=== PATIENT | female | born 1995 | race Caucasian/White ===

== ENCOUNTER 2016-05-19 13:18 | Emergency (ER) | payer SELFPAY ==
[2016-05-19 13:26] VITALS: BP 130/71; BMI 23.5
--- NOTE | 2016-05-19 15:03 | DR.GENAD ---
HPI - PCP Primary Care Physician: NFD - HPI Comment HPI Comment: GETTING WORSE. NO DRAINAGE. HAVE LOW GRADE FEVER.EAR CANAL PAINFULL ALSO. SIDE OF FACE NEAR EARS SORE. - Complaint/Symptoms Chief Complaint Doctors Comments: PAIN BOTH EARS TIMES 3 DAYS. Chief Complaint:: BOTH EARS AND SIDES OF FACE SORE TO AND HURTS TO TOUCH - Nurses notes reviewed Nurses Notes Review: Yes - Source History Provided: Patient - Mode of Arrival Mode of Arrival: Ambulatory - Timing Onset of Chief Complaint: 05/16/16 Came on: Suddenly - Duration Duration: Constant Duration: Days - Severity Severity: Moderate PMH - PMH Past Medical History: No Past Surgical History: Yes Surgical History: Tonsillectomy - Family History History of Family Medical Conditions: Yes Family Medical History: [place], Hypertension - Social History Alcohol Use: None Do you use any recreational Drugs:: No Lives With: Alone Lives Where: Home - infectious screening In the last 2 months have you had wt loss of >10#?: NO Have you had fever, night sweats or hemotysis?: No Have you traveled outside the country in the last 6 months?: No Isolation: Standard ROS - Review of Systems Constitutional: Fever Eyes: No Symptoms Reported ENTM: Ear Pain. negative: Ear Discharge, Hearing Loss, Nose Discharge, Nose Congestion, Throat Pain Respiratoy: No Symptoms Reported Cardiovascular: No Symptoms Reported Gastrointestinal/Abdominal: No Symptoms Reported Genitourinary: No Symptoms Reported Neurological: No Symptoms Reported Musculoskeletal: No Symptoms Reported Integumentary: No Symptoms Reported Hematologic/Lymphatic: No Symptoms Reported Endocrine: No Symptoms Reported All Other Systems: Reviewed and Negative PE - Vital Signs Vitals: Temperature 99.0 F Pulse Rate 108 Respiratory Rate 14 Blood Pressure 130/71 O2 Sat by Pulse Oximetry 99 - General Limitations: No Limitations General Appearance: Alert - Head Head Exam: Normal Inspection - Eyes Eye exam: Normal Appearance - ENT ENT Exam: negative: Normal External Ear Exam (BOTH EAR CANNAL RED.), TM's Normal Bilaterally (BILATERA HYPEREMIC TM.) External Ear Exam: External Tenderness TM/Canal Exam: Bilateral Erythema Nose Exam: Normal Nose Exam Mouth Exam: Normal Inspection Throat Exam: Normal Inspection - Neck Neck Exam: Trachea Midline. negative: Tenderness, Meningismus, Lymphadenopathy - Chest Chest Inspection: Symmetric Chest Wall Rise - Respiratory Respiratory Exam: Normal Lung Sounds Bilat Respiratory Exam: Bilateral Clear to Auscultation - Cardiovascular Cardiovascular Exam: Regular Rate, Normal Rhythm, Normal Heart Sounds - Abdominal Exam Abdominal Exam: Normal Inspection - Extremities Extremities Exam: Normal Inspection - Back Back Exam: Normal Inspection - Neurologic Neurological Exam: Alert, Oriented X3 - Psychiatric Psychiatric Exam: Normal Affect, Normal Mood - Skin Skin Exam: Normal Color MDM - Differential Diagnosis Differential Diagnosis: BILATERAL OTITIS MEDIA AND BILATERAL OTITIS EXTERNAL. Course - Education/Counseling Education/Counseling: Patient, Education Educated On: Diagnosis, Needs for Follow Up - Diagnosis Discharge Problem: Otitis media Qualifiers: Otitis media type: suppurative Laterality: bilateral Chronicity: acute Recurrence: not specified as recurrent Spontaneous tympanic membrane rupture: without spontaneous rupture Qualified Code(s): H66.003 - Acute suppurative otitis media without spontaneous rupture of ear drum, bilateral Otitis externa Qualifiers: Otitis externa type: unspecified type Laterality: bilateral Chronicity: acute Qualified Code(s): H60.503 - Unspecified acute noninfective otitis externa, bilateral - Discharge Plan Disposition: 01 HOME, SELF-CARE Condition: Stable Prescriptions: Amoxicillin [Amoxil 875 mg] 875 mg PO BID #20 tab Ibuprofen [MOTRIN TAB 600 MG *] 600 mg PO TID PRN #20 tab PRN Reason: Pain/Inflammation - Follow ups/Referrals Follow ups/Referrals: NFD,None [Primary Care Provider] - 3 days - Instructions Instructions: Otitis Media, Adult, [id number] Additional Instructions: RETURN TO ED IF WORSE.
== END 2016-05-19 15:15 | disposition home or self-care (01) ==
LOC: ER 13:18
DX: H66.003 Acute suppurative otitis media without spontaneous rupture of ear drum, bilateral (principal); H60.503 Unspecified acute noninfective otitis externa, bilateral
CPT/HCPCS: 99281; 99282

== ENCOUNTER 2016-11-12 21:16 | Emergency (ER) | payer OTHER ==
[2016-11-12 21:22] VITALS: BP 141/72; BMI 25.8
[2016-11-12 23:11] LABS: BILIRUBIN,URINE NEGATIVE (NEGATIVE); BLOOD/HEMOGLOBIN,URINE NEGATIVE (NEGATIVE); GLUCOSE, URINE NEGATIVE (NEGATIVE); KETONES,URINE NEGATIVE (NEGATIVE); LEUKOCYTE ESTERASE ,URINE 1+ (NEGATIVE); NITRITES,URINE NEGATIVE (NEGATIVE); PROTEIN,URINE NEGATIVE (NEGATIVE); UROBILINOGEN,URINE NORMAL (NORMAL)
[2016-11-12 23:19] LABS: APPEARANCE,URINE CLEAR (CLEAR); BACTERIA,URINE NEGATIVE /HPF (NEGATIVE); COLOR,URINE YELLOW (YELLOW); RBC,URINE 0-3 /HPF (NEGATIVE); SQUAMOUS EPITHELIAL CELL,UR FEW /HPF (NEGATIVE)
== END 2016-11-12 23:45 | disposition home or self-care (01) ==
LOC: ER 21:37
DX: R10.84 Generalized abdominal pain (principal); Z3A.26 26 weeks gestation of pregnancy
CPT/HCPCS: 81001; 99284

== ENCOUNTER 2017-04-12 08:56 | Emergency (ER) | payer OTHER ==
[2017-04-12 08:59] VITALS: BMI 24.3
--- NOTE | 2017-04-12 09:31 | DR.URINEF ---
HPI - Time Seen Time seen: 09:10 - PCP Primary Care Physician: NFD - Complaint Chief Complaint Doctors Comments: Patient states that she has urinary frequency and dysuria for three days. She admits to a UTI just three weeks and was treated with antibiotics by her OB physician.. She now has frequency and dysuria. Denies vomiting or fever. Chief Complaint:: PT. C/O DYSURIA AND URINARY FREQUENCY. PT. HAS BEEN TAKING AZO OTC. - Source History Provided: Patient - Mode of Arrival Mode of Arrival: Ambulatory - Timing Onset of Chief Complaint: 04/10/17 PMH - PMH Past Medical History: No Past Surgical History: Yes Surgical History: Tonsillectomy - Family History History of Family Medical Conditions: Yes Family Medical History: Cancer, Hypertension - Social History Does patient currently use any type of tobacco product: No Have you used tobacco products in the last 12 months: No Type of Tobacco Use: None Does any household member use tobacco: No Alcohol Use: None Do you use any recreational Drugs:: No Lives With: Alone Lives Where: Home - infectious screening In the last 2 months have you had wt loss of >10#?: NO Have you had fever, night sweats or hemotysis?: No Have you traveled outside the country in the last 6 months?: No Isolation: Standard ROS - Review of Systems Eyes: No Symptoms Reported ENTM: No Symptoms Reported Respiratoy: No Symptoms Reported Cardiovascular: No Symptoms Reported Gastrointestinal/Abdominal: No Symptoms Reported Genitourinary: Dysuria, Frequency Neurological: No Symptoms Reported Musculoskeletal: No Symptoms Reported Integumentary: No Symptoms Reported Hematologic/Lymphatic: No Symptoms Reported Endocrine: No Symptoms Reported Psychiatric: No Symptoms Reported All Other Systems: Reviewed and Negative PE - Vital Signs Vitals: Temperature 98.8 F Pulse Rate 94 Respiratory Rate 17 Blood Pressure 135/75 O2 Sat by Pulse Oximetry 99 - General Limitations: No Limitations General Appearance: Alert - Head Head Exam: Normal Inspection, Atraumatic - Eyes Eye exam: Normal Appearance, PERRL, Scleral Icterus - ENT ENT Exam: Normal Exam - Neck Neck Exam: Normal Inspection, Full ROM - Chest Chest Inspection: Normal Inspection - Respiratory Respiratory Exam: Normal Lung Sounds Bilat Respiratory Exam: Bilateral Clear to Auscultation - Cardiovascular Cardiovascular Exam: Regular Rate, Normal Rhythm - Abdominal Exam Abdominal Exam: Normal Inspection, Normal Bowel Sounds Abdominal Tenderness: Suprapubic - Rectal Rectal Exam: Deferred - Genitourinary External Exam: Female: Deferred : Speculum Exam (Female): Deferred : Bimanual Exam (female): Deferred - Extremities Extremities Exam: Normal Inspection - Back Back Exam: Normal Inspection. negative: Tenderness - Neurologic Neurological Exam: Alert, Oriented X3, CN II-XII Intact - Psychiatric Psychiatric Exam: Normal Affect - Skin Skin Exam: Warm, Dry, Intact ROR - Labs Reviewed Laboratory Results Reviewed?: Yes (UA: 15-20 wbc) Laboratory: Specimen Type Clean catch urine 04/12/17 09:24 Urine Color [place] (YELLOW) 04/12/17 09:24 Urine Appearance Hazy (CLEAR) 04/12/17 09:24 Urine pH Cancelled 04/12/17 09:11 Ur Specific [place] Cancelled 04/12/17 09:11 Urine Protein Cancelled 04/12/17 09:11 Urine Glucose (UA) Cancelled 04/12/17 09:11 Urine Ketones Cancelled 04/12/17 09:11 Urine Occult Blood Cancelled 04/12/17 09:11 Urine Nitrite Cancelled 04/12/17 09:11 Urine Bilirubin Cancelled 04/12/17 09:11 Urine Urobilinogen Cancelled 04/12/17 09:11 Ur Leukocyte Esterase Cancelled 04/12/17 09:11 Urine RBC Tntc /HPF (NEGATIVE) 04/12/17 09:24 Urine WBC 15-20 /HPF (NEGATIVE) 04/12/17 09:24 Ur Squamous Epith Cells Few /HPF (NEGATIVE) 04/12/17 09:24 Urine Bacteria 1+ /HPF (Negative) 04/12/17 09:24 Ur Culture Indicated? Yes/culture set up 04/12/17 09:24 Micro UA Comment Unable to perform (-) 04/12/17 09:24 Urinalysis Comment Cancelled 04/12/17 09:11 - Diagnosis Discharge Problem: UTI (urinary tract infection) Qualifiers: Urinary tract infection type: acute cystitis Hematuria presence: with hematuria Qualified Code(s): N30.01 - Acute cystitis with hematuria - Discharge Plan Condition: Stable - Follow ups/Referrals Follow ups/Referrals: NFD,None [Primary Care Provider] - 3 days - Instructions
[2017-04-12 09:44] LABS: APPEARANCE,URINE HAZY (CLEAR); BACTERIA,URINE 1+ /HPF (Negative); COLOR,URINE ORANGE (YELLOW); RBC,URINE TNTC /HPF (NEGATIVE); SQUAMOUS EPITHELIAL CELL,UR FEW /HPF (NEGATIVE)
[2017-04-12] MEDS ORDERED: PHENERGAN INJ 25 MG IV ONE (17:32)
[2017-04-12] MEDS ORDERED: NS 1000 ML 1,000 ML IV ONE (17:32)
[2017-04-12] MEDS ORDERED: NS 1000 ML 1,000 ML ONE (17:33)
[2017-04-12] MEDS ORDERED: PHENERGAN INJ 25 MG ONE (17:33)
[2017-04-12 19:40] VITALS: BP 129/69
== END 2017-04-12 19:40 | disposition home or self-care (01) ==
LOC: ER 09:03
DX: N30.01 Acute cystitis with hematuria (principal); R11.10 Vomiting, unspecified; R10.13 Epigastric pain; B96.81 Helicobacter pylori [H. pylori] as the cause of diseases classified elsewhere; B96.29 Other Escherichia coli [E. coli] as the cause of diseases classified elsewhere
CPT/HCPCS: 36415; 81015; 86677; 87086; 87088; 87186; 96365; 96367; 96374; 99282; 99283; A4222; J2550

== ENCOUNTER 2017-04-17 01:50 | Emergency (ER) | payer OTHER ==
[2017-04-17 01:58] VITALS: BP 137/75; BMI 23.5
[2017-04-17] MEDS ORDERED: DEMEROL INJ IM ONE (02:22)
[2017-04-17] MEDS ORDERED: PHENERGAN INJ 25 MG IM ONE (02:23)
--- NOTE | 2017-04-17 02:29 | DR.GENAD ---
HPI - PCP Primary Care Physician: NFD - Complaint/Symptoms Chief Complaint Doctors Comments: Patient states she tripped over her foot and fell off the porch landing on hr right wrist and hand with severe pain in her right wrist with swelling. States she is unable to move the fingers on her right hand without pain. She denies head trauma or LOC. states the pain is 8 of 10. She denies chest pain or SOB. Chief Complaint:: FELL OFF PORCH; LANDED ON RIGHT WRIST; OBVIOUS DEFORMITY TO RIGHT WRIST. - Nurses notes reviewed Nurses Notes Review: Yes - Source History Provided: Patient - Mode of Arrival Mode of Arrival: Ambulatory - Timing Onset of Chief Complaint: 04/17/17 Came on: Suddenly - Duration Duration: Constant How lon Duration: Minutes - Location Location: right wrist pain - Severity Severity: Severe - Modifying Factors Worsens:: movement Improves:: nothing PMH - PMH Past Medical History: No Past Medical History: GERD Past Surgical History: Yes Surgical History: Tonsillectomy - Family History History of Family Medical Conditions: No Family Medical History: Cancer, Hypertension - Social History Alcohol Use: None Do you use any recreational Drugs:: No Lives With: Significant Other Lives Where: Home - infectious screening In the last 2 months have you had wt loss of >10#?: NO Have you had fever, night sweats or hemotysis?: No Have you traveled outside the country in the last 6 months?: No Isolation: Standard ROS - Review of Systems Constitutional: No Symptoms Reported. negative: See HPI, Chills, Diaphoresis, Fever, Malaise, Weakness, Irritable, Fatigue, Loss of Appetite, Other Eyes: No Symptoms Reported ENTM: No Symptoms Reported. negative: See HPI, Ear Pain, Ear Discharge, Pulling on Ears, Hearing Loss, Nose Pain, Nose Discharge, Epistaxis, Nose Congestion, Mouth Pain, Mouth Swelling, Loose Teeth, Drooling, Throat Pain, Throat Swelling, Ear Foreign Body Respiratoy: No Symptoms Reported Cardiovascular: No Symptoms Reported Gastrointestinal/Abdominal: No Symptoms Reported. negative: See HPI, Abdominal Pain, Constipation, Diarrhea, Nausea, Vomiting, Food Intolerance, Other Genitourinary: No Symptoms Reported Neurological: No Symptoms Reported. negative: See HPI, Anxiety, Depressed, Emotional Problems, Headache, Numbness, Paresthesia, Pre-existing Deficit, Seizure, Tingling, Tremors, Weakness, Dizziness, Problems Walking, Speech Problem, Other Musculoskeletal: No Symptoms Reported, Right, Wrist, Hand Integumentary: No Symptoms Reported Hematologic/Lymphatic: No Symptoms Reported. negative: See HPI, Anemia, Blood Clots, Easy Bleeding, Easy Bruising, Swollen Glands, Lymphadenopathy, Other Endocrine: No Symptoms Reported Psychiatric: No Symptoms Reported. negative: See HPI, Anxiety, Depression, Hallucinations, Excessive crying, Suicidal, Other PE - Vital Signs Vitals: Temperature 99.3 F Pulse Rate 103 Respiratory Rate 24 Blood Pressure [Left Arm] 129/69 Blood Pressure 137/75 O2 Sat by Pulse Oximetry 100 - General Limitations: No Limitations General Appearance: Alert, In Distress (moderate) - Head Head Exam: Normal Inspection, Atraumatic, Normocephalic - Eyes Eye exam: Normal Appearance, PERRL, EOMI. negative: Scleral Icterus, Conjunctival Injection, Nystagmus, Miosis, Mydrasis, Periorbital Swelling, Periorbital Tenderness, Other - ENT ENT Exam: Normal Exam, Normal Oropharynx, Normal External Ear Exam, Mucous Membranes Moist, TM's Normal Bilaterally External Ear Exam: Normal External Inspection TM/Canal Exam: Bilateral Normal Nose Exam: Normal Nose Exam Mouth Exam: Normal Inspection Throat Exam: Normal Inspection - Neck Neck Exam: Normal Inspection, Full ROM, Trachea Midline - Chest Chest Inspection: Normal Inspection, Symmetric Chest Wall Rise - Respiratory Respiratory Exam: Normal Lung Sounds Bilat Respiratory Exam: Bilateral Clear to Auscultation - Cardiovascular Cardiovascular Exam: Regular Rate, Normal Rhythm, Normal Heart Sounds - Abdominal Exam Abdominal Exam: Normal Inspection, Normal Bowel Sounds Abdominal Tenderness: negative: RUQ, RLQ, LUQ, LLQ, Epigastrium, Suprapubic, Diffuse, Mild, Moderate, Severe, Other - Extremities Extremities Exam: Normal Inspection, Full ROM, Tenderness (right wrist with tenderness; swelling), Normal Capillary Refill - Back Back Exam: Normal Inspection, Full ROM. negative: Tenderness, (R) CVA Tenderness, (L) CVA Tenderness, Muscle Spasm, Paraspinal Tenderness, Vertebral Tenderness, Rashes, (R) Sciatic Notch Tenderness, (L) Sciatic Notch Tendern, (R ) Straight Leg Raise, (L) Straight Leg Raise, Other - Neurologic Neurological Exam: Alert, Oriented X3, CN II-XII Intact, Normal Gait, Reflexes Normal - Psychiatric Psychiatric Exam: Normal Affect, Normal Mood - Skin Skin Exam: Warm, Dry, Intact, Normal Color ROR - Labs Reviewed Laboratory Results Reviewed?: Yes - XRAY XRAY Interpreted by: Self (right wrist: Compression fracture distal radius) - Diagnosis Discharge Problem: Contusion of right wrist Radius distal fracture Qualifiers: Encounter type: initial encounter Fracture type: closed Laterality: right - Discharge Plan Disposition: HOME, SELF-CARE Condition: Stable Prescriptions: Acetaminophen/Codeine Tab [TYLENOL w/CODEINE #3 (300 MG/30 MG) *] 1 tab PO Q4- 6H PRN #28 tab PRN Reason: Pain Naproxen [Naprosyn] 500 mg PO BID PRN #20 tab PRN Reason: Pain/Inflammation - Follow ups/Referrals Follow ups/Referrals: NFD,None [Primary Care Provider] - 3 days NORMA WILLS [STAFF PHYSICIAN] - 3 days - Instructions Instructions: Radial Fracture
--- NOTE | 2017-04-17 03:03 | RAD ---
Three views of the right wrist. Indication: Wrist pain post fall Findings: There is a minimally displaced intra-articular fracture of the medial aspect of the distal radius. The distal ulna is intact. Mild soft tissue swelling within the distal right forearm. Radioca rpal joint alignment and spaces are maintained. Impression: Minimally displaced intra-articular fracture of the medial aspect of the distal radius. A natomic alignment of the radiocarpal joint. Reported By:
[2017-04-17] MEDS ORDERED: DEMEROL INJ ONE (14:38)
[2017-04-17] MEDS ORDERED: PHENERGAN INJ 25 MG ONE (14:38)
[2017-04-20] MEDS ORDERED: PHENERGAN INJ 25 MG IM ONE (02:45)
[2017-04-20] MEDS ORDERED: DEMEROL INJ IM ONE (02:46)
== END 2017-04-17 03:04 | disposition home or self-care (01) ==
LOC: ER 01:50
DX: S52.539A Colles' fracture of unspecified radius, initial encounter for closed fracture (principal); S60.211A Contusion of right wrist, initial encounter; W19.XXXA Unspecified fall, initial encounter; Y92.89 Other specified places as the place of occurrence of the external cause
CPT/HCPCS: 29125; 73100; 96372; 99282; 99283; J2175; J2550

== ENCOUNTER → 2017-06-02 | Outpatient (CLI) | payer OTHER ==
--- NOTE | 2017-06-02 15:18 | MRI ---
MR right wrist without contrast Indication: Right wrist pain after fall. Swelling. Comparison: 04/17/2017. Technique: Multiplanar multisequence imaging through the right wrist. No contrast given. Findings: There is essentially nondisplaced distal radial metaphysis fracture with intra-articular ex tension to the dorsal radius at the radial lunate articulation. Remaining bones show normal bone altaf ow signal. Triangular fibrocartilage appears intact. Lunatotriquetral ligaments and scapholunate liga ments are normal. Small joint effusion present at the radioscaphoid joint. Flexor and extensor tendon s are intact. Neurovascular structures are normal. Impression: 1. Intra-articular distal radius fracture, essentially nondisplaced. 2. No other acute fracture. Reported By:
== END | disposition home or self-care (01) | DRG 565 ==
LOC: RAD 08:48
PROVIDERS: ATTEND Orthopaedic Surgery
DX: M25.331 Other instability, right wrist (principal); S52.571A Other intraarticular fracture of lower end of right radius, initial encounter for closed fracture; W19.XXXA Unspecified fall, initial encounter
CPT/HCPCS: 73221

== ENCOUNTER 2017-07-13 12:28 | Emergency (ER) | payer OTHER ==
[2017-07-13] MEDS ORDERED: ACTIDOSE WITH SORBITOL PO ONE (12:41)
--- NOTE | 2017-07-13 12:44 | DR.DING ---
HPI - Time Seen Time seen: 12:35 - HPI Comment HPI Comment: Patient was at work and co-workers reports that patient fell to the floor and started shaking. The duration was less than three minutes. Patient eventually stated that she took ten tramadol 50mg tablets. She is not sure as to the time of taking medication. PMH - PMH Past Medical History: GERD Past Surgical History: Yes Surgical History: Tonsillectomy - Family History Family Medical History: Cancer, Hypertension - Social History Do you use any recreational Drugs:: No ROS - Review of Systems Eyes: No Symptoms Reported ENTM: No Symptoms Reported Respiratoy: No Symptoms Reported Cardiovascular: No Symptoms Reported Gastrointestinal/Abdominal: No Symptoms Reported Genitourinary: No Symptoms Reported Neurological: No Symptoms Reported Musculoskeletal: No Symptoms Reported Integumentary: No Symptoms Reported Hematologic/Lymphatic: No Symptoms Reported Endocrine: No Symptoms Reported Psychiatric: No Symptoms Reported All Other Systems: Reviewed and Negative PE - Vital signs Vitals: Temperature 99.3 F Pulse Rate [Right Radial] 87 Pulse Rate 142 Respiratory Rate 18 Blood Pressure [Left Arm] 129/71 Blood Pressure 138/81 O2 Sat by Pulse Oximetry 98 - General Limitations: No Limitations General Appearance: Alert, In No Apparent Distress - Head Head Exam: Normal Inspection, Atraumatic - Eyes Eye exam: Normal Appearance, PERRL, EOMI Pupils: Regular, Round: Bilateral Sclera/Conjunctival: Normal Inspection: Bilateral - ENT ENT Exam: Normal Exam, Normal Oropharynx, Normal External Ear Exam - Neck Neck Exam: Normal Inspection, Full ROM - Chest Chest Inspection: Normal Inspection, Symmetric Chest Wall Rise - Respiratory Respiratory Exam: Normal Lung Sounds Bilat Respiratory Exam: Bilateral Clear to Auscultation - Cardiovascular Cardiovascular Exam: Regular Rate, Normal Rhythm - Abdominal Exam Abdominal Exam: Normal Inspection, Normal Bowel Sounds Abdominal Tenderness: negative: RUQ, RLQ, LUQ, LLQ, Epigastrium, Suprapubic, Diffuse, Mild, Moderate, Severe, Other - Extremities Extremities Exam: Normal Inspection - Back Back Exam: Normal Inspection - Neurologic Neurological Exam: Alert, Oriented X3, CN II-XII Intact Speech: Fluid Speech Cranial Nerve Exam: EOM Function (II, III, IV, ): Normal, Facial Sensation (V) : Normal, Gag reflex (XI): Normal Motor Strength - LUE: 3/5 Motor Strength - RUE: 3/5 Motor Strength - LLE: 3/5 Sensory Exam Upper Extremity: Light Touch: Normal, Pin Prick: Normal Sensory Exam Lower Extremity: Light Touch: Normal DTR: achilles tendon (L): 2+, bicep (L): 2+ - Psychiatric Psychiatric Exam: Agitated. negative: Suicidal Ideation - Skin Skin Exam: Warm, Dry, Intact Course - Treatment Treatment: Activated charcoal, NS - Education/Counseling Educated On: Treatment, Diagnosis, Prognosis ROR - Labs Reviewed Result Diagrams: 07/13/17 12:45 07/13/17 12:45 Laboratory: WBC 7.6 X10^3/uL (3.6-10.0) 07/13/17 12:45 RBC 4.12 X10^6/uL (3.5-5.4) 07/13/17 12:45 Hgb 12.5 g/dL (12.0-16.0) 07/13/17 12:45 Hct 36.5 % (36.0-47.0) 07/13/17 12:45 MCV 88.5 fL (80.0-100.0) 07/13/17 12:45 MCH 30.2 pg (27.0-34.0) 07/13/17 12:45 MCHC 34.2 g/dL (33.0-35.0) 07/13/17 12:45 RDW 13.1 % (11.6-16.5) 07/13/17 12:45 Plt Count 211 X10^3/uL (150.0-450.0) 07/13/17 12:45 MPV 9.8 fL (7.4-11.0) 07/13/17 12:45 Neut % (Auto) 54.5 % (42.0-75.0) 07/13/17 12:45 Lymph % (Auto) 32.1 % (21.0-51.0) 07/13/17 12:45 [place] % (Auto) 8.9 % (0.0-13.0) 07/13/17 12:45 Eos % (Auto) 3.9 % (0.9-2.9) H 07/13/17 12:45 Baso % (Auto) 0.6 % (0.2-1.0) 07/13/17 12:45 Neut # (Auto) 4.1 x10^3/uL (2.2-4.8) 07/13/17 12:45 Lymph # (Auto) 2.4 X10^3/uL (1.3-2.9) 07/13/17 12:45 [place] # (Auto) 0.7 x10^3/uL (0.3-0.8) 07/13/17 12:45 Eos # (Auto) 0.3 x10^3/uL (0.0-0.2) H 07/13/17 12:45 Baso # (Auto) 0.0 X10^3/uL (0.0-0.1) 07/13/17 12:45 Absolute Nucleated RBC 0.0 /100WBC 07/13/17 12:45 Sodium 137 mmol/L (136-145) 07/13/17 12:45 Corrected Sodium TNP 07/13/17 12:45 Potassium 3.9 mmol/L (3.5-5.1) 07/13/17 12:45 Chloride 102 mmol/L (98-107) 07/13/17 12:45 Carbon Dioxide 22.4 mmol/L (21-32) 07/13/17 12:45 BUN 9 mg/dL (7-18) 07/13/17 12:45 Creatinine 0.95 mg/dL (0.55-1.02) 07/13/17 12:45 Est GFR (MDRD) Af Amer > 60 (>60) 07/13/17 12:45 Est GFR (MDRD) Non-Af > 60 (>60) 07/13/17 12:45 Glucose 90 mg/dL (65-99) 07/13/17 12:45 Calcium 7.8 mg/dL (8.5-10.1) L 07/13/17 12:45 Corrected Calcium TNP 07/13/17 12:45 Total Bilirubin 0.30 mg/dL (0.2-1.0) 07/13/17 12:45 AST 19 Units/L (15-37) 07/13/17 12:45 ALT 26 Units/L (12-78) 07/13/17 12:45 Alkaline Phosphatase 68 Units/L (46-116) 07/13/17 12:45 Creatine Kinase 73 Units/L (26-192) 07/13/17 12:45 CK-MB (CK-2) < 1.0 ng/mL (0-4.0) 07/13/17 12:45 CK/CKMB % Calc 1.4 % (<4) 07/13/17 12:45 Troponin I < 0.02 ng/mL (0-1.5) 07/13/17 12:45 Total Protein 7.2 g/dL (6.4-8.2) 07/13/17 12:45 Albumin 4.1 g/dL (3.4-5.0) 07/13/17 12:45 Globulin 3.1 g/dL (2.5-4.5) 07/13/17 12:45 Albumin/Globulin Ratio 1.3 Ratio (1.1-2.1) 07/13/17 12:45 Specimen Type Clean catch urine 07/13/17 14:00 Urine Color [place] (YELLOW) 07/13/17 14:00 Urine Appearance Clear (CLEAR) 07/13/17 14:00 Urine pH Cancelled 07/13/17 14:00 Ur Specific [place] Cancelled 07/13/17 14:00 Urine Protein Cancelled 07/13/17 14:00 Urine Glucose (UA) Cancelled 07/13/17 14:00 Urine Ketones Cancelled 07/13/17 14:00 Urine Occult Blood Cancelled 07/13/17 14:00 Urine Nitrite Cancelled 07/13/17 14:00 Urine Bilirubin Cancelled 07/13/17 14:00 Urine Urobilinogen Cancelled 07/13/17 14:00 Ur Leukocyte Esterase Cancelled 07/13/17 14:00 Urine RBC 5-10 /HPF (NONE SEEN) 07/13/17 14:00 Urine WBC 3-5 /HPF (NONE SEEN) 07/13/17 14:00 Ur Squamous Epith Cells Numerous /HPF (NEGATIVE) 07/13/17 14:00 Urine Bacteria Trace /HPF (NEGATIVE) 07/13/17 14:00 Ur Culture Indicated? Yes/culture set up 07/13/17 14:00 Salicylates < 2.8 mg/dL (2.8-20) L 07/13/17 12:45 Urine Opiates Screen Negative (NEG=<300) 07/13/17 14:00 Urine Methadone Screen Negative (NEG=<300) 07/13/17 14:00 Acetaminophen 0.0 ug/mL (10-30) L 07/13/17 12:45 Ur Barbiturates Screen Negative (NEG=<200) 07/13/17 14:00 Ur Phencyclidine Scrn Negative (NEG=<25) 07/13/17 14:00 Ur Amphetamines Screen Negative (NEG=<1000) 07/13/17 14:00 U Benzodiazepines Scrn Negative (NEG=<200) 07/13/17 14:00 Urine Cocaine Screen Negative (NEG=<300) 07/13/17 14:00 U Marijuana (THC) Screen Negative (NEG=<50) 07/13/17 14:00 - XRAY XRAY Interpreted by: Radiologist (Chest : No acute cardiopulmonary abnormality) - EKG Rate: 82 (2nd EKG) [place]: LAD Rhythm: NSR - Diagnosis Discharge Problem: Mild tramadol use disorder - Discharge Plan Condition: Stable - Follow ups/Referrals Follow ups/Referrals: NFD,None [Primary Care Provider] - 3 days - Instructions
[2017-07-13] MEDS ORDERED: ACTIDOSE WITH SORBITOL ONE (12:46)
[2017-07-13 12:59] LABS: BASOPHILS % (AUTO) 0.6 % (0.2-1.0); EOSINOPHILS # (AUTO) 0.3 x10^3/uL (0.0-0.2); EOSINOPHILS % (AUTO) 3.9 % (0.9-2.9); HEMATOCRIT 36.5 % (36.0-47.0); HEMOGLOBIN 12.5 g/dL (12.0-16.0); LYMPHOCYTES # (AUTO) 2.4 X10^3/uL (1.3-2.9); LYMPHOCYTES % (AUTO) 32.1 % (21.0-51.0); MEAN CORPUSCULAR HEMOGLOBIN 30.2 pg (27.0-34.0); MEAN CORPUSCULAR HGB CONC 34.2 g/dL (33.0-35.0); MEAN CORPUSCULAR VOLUME 88.5 fL (80.0-100.0); MEAN PLATELET VOLUME 9.8 fL (7.4-11.0); MONOCYTES # (AUTO) 0.7 x10^3/uL (0.3-0.8); MONOCYTES % (AUTO) 8.9 % (0.0-13.0); NEUTROPHILS # (AUTO) 4.1 x10^3/uL (2.2-4.8); NEUTROPHILS % (AUTO) 54.5 % (42.0-75.0); PLATELET COUNT 211 X10^3/uL (150.0-450.0); RED BLOOD COUNT 4.12 X10^6/uL (3.5-5.4); RED CELL DISTRIBUTION WIDTH 13.1 % (11.6-16.5); WHITE BLOOD COUNT 7.6 X10^3/uL (3.6-10.0)
[2017-07-13] MEDS ORDERED: SORBITOL 70% PO SCH (13:00)
[2017-07-13 13:07] LABS: SALICYLATE < 2.8 mg/dL (2.8-20)
[2017-07-13 13:08] VITALS: BMI 21.9
[2017-07-13] MEDS ORDERED: NS 1000 ML 1,000 ML IV ONE (13:09)
[2017-07-13 13:15] LABS: BLOOD UREA NITROGEN 9 mg/dL (7-18); CALCIUM 7.8 mg/dL (8.5-10.1); CARBON DIOXIDE 22.4 mmol/L (21-32); CHLORIDE 102 mmol/L (98-107); CREATININE 0.95 mg/dL (0.55-1.02); SODIUM 137 mmol/L (136-145); eGFR BLACK RACES > 60 (>60); eGFR NON BLACK RACES > 60 (>60)
[2017-07-13 13:21] LABS: ALANINE AMINOTRANSFERASE 26 Units/L (12-78); ALBUMIN 4.1 g/dL (3.4-5.0); ALKALINE PHOSPHATASE 68 Units/L (46-116); ASPARTATE AMINO TRANSFERASE 19 Units/L (15-37); TOTAL PROTEIN 7.2 g/dL (6.4-8.2)
[2017-07-13 13:25] LABS: CREATINE KINASE 73 Units/L (26-192)
[2017-07-13 13:26] LABS: CKMB % 1.4 % (<4); CREATINE KINASE MB < 1.0 ng/mL (0-4.0); TROPONIN I < 0.02 ng/mL (0-1.5)
[2017-07-13] MEDS ORDERED: LR 1000 ML IV 1,000 ML IV ONE ×2 (13:33→13:37)
--- NOTE | 2017-07-13 13:36 | RAD ---
HISTORY: Chest and abdominal pain. Acute abdominal series. Findings: The trachea is midline. The cardiac silhouette is unremarkable. The lungs are clear without focal i nfiltrate or effusion. The bony thorax is unremarkable. Flat plate and upright evaluation of the abdomen demonstrates a nonspecific and nonobstructive bowel gas pattern. No free peritoneal air is seen. No pathological soft tissue abdominal mass effect or foc al calcification can be observed. The bony structures are grossly intact. IMPRESSION: 1. No acute cardiopulmonary disease. 2. No evidence for acute abdominal pathology. 3. [id number] quantity of proximal colonic stool. Reported By:
[2017-07-13 14:31] LABS: APPEARANCE,URINE CLEAR (CLEAR); BACTERIA,URINE TRACE /HPF (NEGATIVE); COLOR,URINE ORANGE (YELLOW); SQUAMOUS EPITHELIAL CELL,UR NUMEROUS /HPF (NEGATIVE)
[2017-07-13 18:15] VITALS: BP 129/71
== END 2017-07-13 23:40 | disposition home or self-care (01) ==
LOC: ER 12:40
DX: F11.20 Opioid dependence, uncomplicated (principal); W19.XXXA Unspecified fall, initial encounter; Y92.69 Other specified industrial and construction area as the place of occurrence of the external cause
CPT/HCPCS: 36415; 74022; 80053; 80307; 82550; 82553; 84484; 85025; 87086; 93005; 93010; 96365; 99283; A4222; G0434; G6038; G6039; J7120